=== PATIENT | female | born 1970 | race Caucasian/White ===

== ENCOUNTER → 2018-12-15 | Outpatient (CLI) | payer BC ==
--- NOTE | 2018-12-15 15:18 | REP ---
REASON: Knee sprain. PRIORS: None. Grade I and II signal changes are present in the posterior horn of the medial meniscus. The anterior horn is unremarkable. The anterior and posterior horns of the lateral meniscus are within normal limits. The anterior and posterior cruciate ligaments are intact. The quadriceps and patellar tendons are intact. The medial and lateral collateral ligaments are intact. There is a slight gap seen between the medial meniscus and medial collateral ligament with T2 hypersignal seen within that gap. The medial and lateral patellar retinacula are intact. There is advanced blistering and fissuring seen involving the patellar articular cartilage over the medial facet. More mild to moderate thinning and irregularity is seen involving the medial compartmental articular cartilages. The marrow signal is within normal limits. There is no joint effusion or Griffin's cyst. IMPRESSION: 1. There is mild medial meniscal capsular separation with evidence to suggest a peripheral tear. 2. There is chondromalacia patella. 3. There is mild to moderate medial and lateral compartmental chondromalacia particularly affecting the medial compartment. Electronically Signed by Kenneth Aguirre DO 12/15/2018 03:35 P
== END ==
LOC: M RAD 12:03
PROVIDERS: ATTEND Orthopaedic Surgery
DX: S83.91XA Sprain of unspecified site of right knee, initial encounter (principal); Y92.89 Other specified places as the place of occurrence of the external cause; Y93.9 Activity, unspecified; Y99.9 Unspecified external cause status

== ENCOUNTER → 2020-07-21 | Outpatient (CLI) | payer OTHER ==
--- NOTE | 2020-07-21 17:56 | REP ---
INDICATION: MIGRAINE. COMPARISON: None. TECHNIQUE: Axial and sagittal imaging planes are utilized for T1 and T2-weighted scans. Sequences include spin-echo, fast spin echo, FLAIR, and diffusion weighted sequences. FINDINGS: No bony calvarial lesion is seen. Craniocervical junction and upper cervical cord are normal in appearance. There is no MR evidence of significant paranasal sinus disease. No intraorbital abnormality is seen. The lateral, third, and fourth ventricles are normal in size and position. There are 1 or 2 foci of T2 hyperintensity involving periventricular white matter of the frontal lobes bilaterally, and a subcortical area of the left frontal lobe. These are most compatible with mild small vessel atherosclerotic changes. There is no evidence of intracranial hemorrhage. No mass, infarction, extra-axial fluid collection or midline shift is seen. No other abnormality. IMPRESSION: Mild small vessel changes. No acute intracranial abnormality.. <Electronically signed by Rob Koehler > 07/21/20 3651
== END ==
LOC: M PLARAD 12:32
PROVIDERS: ATTEND Nurse Practitioner Family
DX: G43.011 Migraine without aura, intractable, with status migrainosus (principal)